=== PATIENT | female | born 1950 | race Caucasian/White ===

== ENCOUNTER 2019-04-05 15:13 | Emergency (ER) | payer OTHER ==
[~2019-04-05] VITALS: Ht 170.2 cm; Wt 48.1 kg
[2019-04-05 16:18] LABS: ABSOLUTE EOSINOPHILS 0.1 thou/uL (0.0-0.7); ABSOLUTE LYMPHOCYTES 1.3 thou/uL (0.8-5.3); ABSOLUTE MONOCYTES 0.6 thou/uL (0.0-1.2); ABSOLUTE NEUTROPHILS 3.3 thou/uL (1.6-8.1); BASOPHILS 0.7 %; EOSINOPHILS 2.4 %; HEMOGLOBIN 12.9 gm/dL (12.0-15.0); LYMPHOCYTES 24.9 %; MCH 32.6 pg (26.0-34.0); MCV 93.3 fL (80.0-100.0); MONOCYTES 10.8 %; MPV 7.2 fl. (7.2-11.1); NUCLEATED RBCS 0 /100WBC; PLATELET COUNT* 183 thou/uL (150-400); POLYS 61.2 %; RBC 3.97 mil/uL (4.20-5.00); RDW-CV 12.4 % (10.5-14.5); WBC 5.4 thou/uL (4.0-11.0)
[2019-04-05 16:30] LABS: CALCIUM 8.9 mg/dL (8.5-10.1); POTASSIUM 4.5 mmol/L (3.5-5.1)
[2019-04-05 16:34] LABS: INFLUENZA A ANTIGEN Negative (Negative); INFLUENZA B ANTIGEN Negative (Negative)
[2019-04-05 16:35] LABS: ALBUMIN 3.7 g/dL (3.4-5.0); TOTAL BILIRUBIN 0.3 mg/dL (<0.1-1.0); TOTAL PROTEIN 6.8 g/dL (6.4-8.2)
[2019-04-05 17:19] LABS: URINE BILIRUBIN NEGATIVE (Negative); URINE BLOOD 1+ (Negative); URINE CLARITY CLEAR; URINE COLOR YELLOW; URINE GLUCOSE-RANDOM NEGATIVE (Negative); URINE KETONES NEGATIVE (Negative); URINE LEUKOCYTES-REFLEX NEGATIVE (Negative); URINE NITRITE-REFLEX NEGATIVE (Negative); URINE PROTEIN NEGATIVE (Negative); URINE SPECIFIC GRAVITY 1.015 (1.005-1.030); URINE UROBILINOGEN 0.2 E.U./dl (0.2-1.0)
[2019-04-05 17:30] LABS: SQUAMOUS 0-3 Few /LPF (0-3)
[2019-04-05 17:31] LABS: URINE RBC 0-2 Rare /HPF (0-2); URINE WBC-REFLEX 0-5 Rare /HPF (0-5)
[2019-04-05 17:32] LABS: BACTERIA-REFLEX 1-9 Few /HPF (None Seen); CASTS None Seen /LPF (None Seen); CRYSTALS None Seen /LPF (None Seen); MUCUS None Seen strn/LPF (None Seen)
[2019-04-05] MEDS ORDERED: KEFLEX500 M1 PO (18:10)
[2019-04-05 18:20] VITALS: BP 147/76
--- NOTE | 2019-04-06 11:16 | EKG ---
[place] [address] ELECTROCARDIOGRAM REPORT Name: BEN EISENBERG Room: [facility]#: [id number] Admission: 04/05/19 Attend Phys: Discharge: 04/05/19 Date of : 50 Date of Service: 04/05/19 1545 Report #: [id number] THIS REPORT FOR: cc: Amy Leach MD, Katrina MD Holkins, John M. MD [facility] ~ THIS REPORT FOR: //name// [facility] ED Test Date: 2019-04-05 Test Time: 15:45:11 Pat Name: BEN EISENBERG Department: Room: Gender: F Inside Wireman: SHONNA : 1950 Requested By: Greer Sheets Order Number: [id number] MD: Gaurav Reno Measurements Intervals [place] Rate: 76 P: 71 MN: 133 QRS: -23 QRSD: 79 T: 52 QT: 401 QTc: 451 Interpretive Statements Sinus rhythm Borderline left axis deviation No previous ECG available for comparison Electronically Signed On 04-06-2019 11:15:21 IT PROJECT LE[employer] by Gaurav Reno [email or web address] <ELECTRONICALLY SIGNED> By: Gaurav Reno MD, [facility] 04/06/19 1115 1545 1545 Gaurav Reno MD, [facility] /EPI
== END 2019-04-05 18:21 | disposition home or self-care (01) ==
LOC: M.ERS 15:13
PROVIDERS: Personal Emergency Response Attendant; Physician Assistant
DX: I16.0 Hypertensive urgency (principal); N39.0 Urinary tract infection, site not specified; Z90.711 Acquired absence of uterus with remaining cervical stump

== ENCOUNTER 2020-04-20 15:14 | Emergency (ER) | payer OTHER ==
[~2020-04-20] VITALS: Ht 170.2 cm; Wt 51.7 kg
[~2020-04-20 15:14] MED LIST: KEFLEX500 M1 PO
[2020-04-20 15:28] LABS: URINE BILIRUBIN NEGATIVE (Negative); URINE BLOOD 2+ (Negative); URINE CLARITY CLEAR; URINE COLOR YELLOW; URINE GLUCOSE-RANDOM NEGATIVE (Negative); URINE KETONES TRACE (Negative); URINE LEUKOCYTES-REFLEX NEGATIVE (Negative); URINE NITRITE-REFLEX NEGATIVE (Negative); URINE PROTEIN NEGATIVE (Negative); URINE SPECIFIC GRAVITY 1.015 (1.005-1.030); URINE UROBILINOGEN 0.2 E.U./dl (0.2-1.0)
[2020-04-20 15:33] LABS: SQUAMOUS 4-10 Moderate /LPF (0-3)
[2020-04-20 15:34] LABS: BACTERIA-REFLEX 1-9 Few /HPF (None Seen); CASTS None Seen /LPF (None Seen); CRYSTALS None Seen /LPF (None Seen); MUCUS 0-3 Light strn/LPF (None Seen); URINE RBC 0-2 Rare /HPF (0-2); URINE WBC-REFLEX 0-5 Rare /HPF (0-5)
[2020-04-20 15:48] LABS: ABSOLUTE EOSINOPHILS 0.2 thou/uL (0.0-0.7); ABSOLUTE LYMPHOCYTES 2.3 thou/uL (0.8-5.3); ABSOLUTE MONOCYTES 0.4 thou/uL (0.0-1.2); ABSOLUTE NEUTROPHILS 4.7 thou/uL (1.6-8.1); BASOPHILS 0.6 %; EOSINOPHILS 2.4 %; HEMATOCRIT 42.4 % (37.0-47.0); HEMOGLOBIN 14.5 gm/dL (12.0-15.0); LYMPHOCYTES 30.2 %; MCH 32.1 pg (26.0-34.0); MCHC 34.2 g/dL (28.0-37.0); MCV 93.9 fL (80.0-100.0); MONOCYTES 5.7 %; NUCLEATED RBCS 0 /100WBC; PLATELET COUNT* 229 thou/uL (150-400); POLYS 61.1 %; RBC 4.51 mil/uL (4.20-5.00); RDW-CV 12.1 % (10.5-14.5); WBC 7.8 thou/uL (4.0-11.0)
[2020-04-20 16:03] LABS: CALCIUM 8.9 mg/dL (8.5-10.1)
[2020-04-20 16:08] LABS: ALBUMIN 3.9 g/dL (3.4-5.0); TOTAL BILIRUBIN 0.4 mg/dL (<0.1-1.0); TOTAL PROTEIN 7.2 g/dL (6.4-8.2)
[2020-04-20] MEDS ORDERED: BACTRIM DS TAB1 EAC1 PO (16:39)
[2020-04-20] MEDS ORDERED: NORCO5 PO (16:39)
[2020-04-20 16:57] VITALS: BP 121/70
== END 2020-04-20 16:57 | disposition home or self-care (01) ==
LOC: M.ERS 15:14
PROVIDERS: Physician Assistant
DX: R10.32 Left lower quadrant pain (principal); R31.9 Hematuria, unspecified; Z88.1 Allergy status to other antibiotic agents; Z90.711 Acquired absence of uterus with remaining cervical stump

== ENCOUNTER → 2020-07-11 | Outpatient (CLI) | payer OTHER ==
[~2020-07-11] MED LIST changes: +BACTRIM DS TAB1 EAC1 PO; +NORCO5 PO
== END ==
LOC: M.CT 12:23
PROVIDERS: ATTEND Urology
DX: R31.29 Other microscopic hematuria (principal); M51.37 Other intervertebral disc degeneration, lumbosacral region; K82.8 Other specified diseases of gallbladder